=== PATIENT | male | born 1950 | race African-American/Black ===

== ENCOUNTER 2018-12-07 07:05 | Observation (INO) ==
--- NOTE | 2018-12-01 08:46 | EKG Report ---
Test Performed on : 12/01/2018 08:19:33 AM Test Reason : PAT Blood Pressure : / mmHG Vent. Rate : 087 BPM Atrial Rate : 087 BPM P-R Int : 154 ms QRS Dur : 100 ms QT Int : 386 ms P-R-T Axes : 051 -22 022 degrees QTc Int : 464 ms Normal sinus rhythm. Possible Left atrial enlargement Left ventricular hypertrophy Nonspecific ST abnormality Abnormal ECG When compared with ECG of 18-DEC-2015 11:08, Minimal criteria for Septal infarct are no longer present Nonspecific T wave abnormality has replaced inverted T waves in Inferior leads Unconfirmed Result
[2018-12-01 09:05] LABS: BASO# 0.07 X1000 (0.0-0.2); BASO% 1.2 % (0.0-0.8); EOS# 0.23 X1000 (0.0-0.7); EOS% 3.8 % (0.0-10.0); HEMATOCRIT 40.4 % (42.0-52.0); HEMOGLOBIN 12.9 g/dL (14.0-18.0); LYMPH# 1.71 X1000 (1.2-3.4); LYMPH% 28.1 % (20.5-51.1); MCH 27.7 PG (27-31); MCHC 31.9 g/dL (33-37); MCV 86.9 FL (81-99); MONO# 0.47 X1000 (0.11-0.59); MONO% 7.7 % (1.7-9.3); MPV 10.1 FL (7.4-10.4); NEUT% 59.2 % (42.2-75.2); PLT 287 X1000 (130-400); RBC 4.65 XMIL (4.7-6.1); RDW 14.4 % (11.5-14.5); WBC 6.08 X1000 (4.8-10.8)
[2018-12-01 09:10] LABS: INR 0.96; PROTIME 13.5 Seconds (11.0-16.0)
[2018-12-01 09:22] LABS: AGAP 13; BUN 16 mg/dL (8-22); CHLORIDE 102 mmol/L (98-107); COSMO 288; CREATININE 0.8 mg/dL (0.7-1.2); ESTIMATED GFR > 60; GLUCOSE 139 mg/dL (70-104); POTASSIUM 2.8 mmol/L (3.5-5.1); SODIUM 143 mmol/L (136-145); TCO2 28 mmol/L (25-35)
[2018-12-01 10:53] LABS: URINE SOURCE CLEAN CATCH
[2018-12-01 11:06] LABS: BILIRUBIN URINE NEGATIVE (NEGATIVE); BLOOD URINE NEGATIVE (NEGATIVE); COLOR YELLOW; GLUCOSE URINE NEGATIVE (NEGATIVE); KETONE URINE NEGATIVE (NEGATIVE); LEUKOCYTES URINE NEGATIVE (NEGATIVE); NITRITE URINE NEGATIVE (NEGATIVE); PH URINE 6.5; PROTEIN URINE TRACE mg/dL (NEGATIVE); SP GRAVITY URINE 1.012; TURBIDITY URINE CLEAR (CLEAR); UROBILINOGEN URINE NORMAL (NORMAL)
[2018-12-01 11:08] LABS: UR EPITHELIAL CELLS <10 /HPF (<10); URINE BACTERIA NEGATIVE /HPF; URINE RBC <10 /HPF (<10); URINE WBC <10 /HPF (<10)
[2018-12-07] MEDS ORDERED: COLACE ONE (07:37)
[2018-12-07] MEDS ORDERED: REGLAN ONE (07:37)
[2018-12-07] MEDS ORDERED: LYRICA ONE (07:37)
[2018-12-07] MEDS ORDERED: PEPCID ONE (07:37)
[2018-12-07] MEDS ORDERED: KEFZOL 2 GM/D5W 2 GM/50 ML IVPB ONE (07:38)
[2018-12-07] MEDS ORDERED: LR 1,000 ML ONE (07:38)
[2018-12-07] MEDS ORDERED: CELEBREX ONE (07:38)
[2018-12-07] MEDS ORDERED: DURAMORPH ONE (08:24)
[2018-12-07] MEDS ORDERED: TORADOL ONE (08:24)
[2018-12-07] MEDS ORDERED: VANCOMYCIN ONE (08:24)
[2018-12-07] MEDS ORDERED: SODIUM CHLORIDE 0.9% ONE (08:25)
[2018-12-07] MEDS ORDERED: SENSORCAINE-MPF 0.5%/EPI 1:200,000 ONE (08:25)
[2018-12-07] MEDS ORDERED: EXPAREL 1.3% ONE (08:26)
[2018-12-07] MEDS ORDERED: NEOSPORIN G.U. IRRIGANT ONE (08:27)
[2018-12-07] MEDS ORDERED: DIPRIVAN 1% 500 MG/50 ML BOTTLE ONE (08:44)
[2018-12-07] MEDS ORDERED: DECADRON ONE (08:47)
[2018-12-07] MEDS ORDERED: XYLOCAINE-MPF 2% ONE (08:47)
[2018-12-07] MEDS ORDERED: FENTANYL ONE (08:48)
[2018-12-07] MEDS ORDERED: OFIRMEV 1000 MG/ISOTONIC SOLN 1,000 MG/100 ML BOTTLE ONE (08:49)
[2018-12-07] MEDS ORDERED: VERSED ONE (08:49)
[2018-12-07] MEDS: CYKLOKAPRON 1,000 MG/NS 2,000 MG/200 ML IVPB ONE ×2 (09:20→10:15)
[2018-12-07] MEDS ORDERED: ZOFRAN ONE (09:21)
--- NOTE | 2018-12-07 10:45 | OPERATIVE NOTE ---
PROCEDURE DATE: 12/07/2018 PREOPERATIVE DIAGNOSIS: Degenerative joint disease (DJD), right knee. POSTOPERATIVE DIAGNOSIS: Degenerative joint disease (DJD), right knee. PROCEDURE PERFORMED: Right total knee replacement. SURGEON: Armani Mcgraw MD MARINE ENGINEER [employer]: RUY Beltran. Mr. Aguirre was necessary for proper retraction and manipulation of the knee during the surgery. ANESTHESIA: Spinal. COMPLICATION: None. PROCEDURE IN DETAIL: A 68-year-old male presents for surgical right knee replacement. Risks, benefits, and no guarantees were discussed, and he was willing to proceed. He was taken the operating room and satisfactory anesthesia obtained. The right leg was prepped and draped in usual sterile fashion. A time-out was taken to confirm operative site, procedure, and patient. The leg was wrapped with an Esmarch after prep and drape and tourniquet inflated to 300 mmHg. A midline incision was made over the front of the knee, followed by a quadriceps tendon-sparing arthrotomy. The patella was everted and resurfaced with freehand technique and subluxed laterally. With the knee flexed, an intramedullary hole was made in the distal femur and the distal femoral cutting block secured in 5 degrees of valgus. Distal femoral resection was made and the femur sized to a [facility] size 7 femoral component. The 4-in-1 block was secured and the anterior, posterior, and chamfer cuts sequentially made. Any remaining osteophytes were debrided about the femur. The PCL was retained and the knee flexed and a PCL retractor placed behind the tibia to protect the PCL. The tibial cutting block was secured with extramedullary alignment and the tibial resection made with care taken to preserve the collateral ligaments and avoid any injury to the posterior neurovascular bundle and PCL. Flexion and extension gaps were equal with a 5 mm spacer. The tibia was sized to a size 7 tibial tray. Trial reduction was performed with good range of motion and stability. The patella was sized to a 38 medialized dome patella with medial and midline tracking of the patellofemoral component. The lug holes were placed for the patellar component and femur and all bony surfaces thoroughly irrigated after removal of the trial prosthesis. Cement with 1 g of vancomycin was then utilized to cement a rotating platform, Attune size 7 tibial tray, size 7 right cruciate-retaining femoral component, and a 38 medialized dome patella. Excess cement was removed with a [place] elevator. While the cement cured, the joint capsule was injected with Exparel and a Hemovac drain placed. Afterwards, a 5 mm thick, size 7 rotating platform poly was secured in the tibial tray and the knee reduced. Final range of motion was 0 to 120 degrees with midline patellar tracking. The arthrotomy was copiously irrigated with irrigant and closed with #1 Vicryl in the arthrotomy over the drain, 2- 0 Vicryl in the subcutaneous, and skin von on the skin edges. Sterile dressings completed the closure and the patient was recovered from anesthesia and transferred to the recovery room in stable condition. No intraoperative complications were noted. Instrument count and sponge count were correct at the time of closure. cc: Brett Mcgraw MD
[2018-12-07 11:07] LABS: URINE SOURCE CATH
[2018-12-07 11:20] LABS: BILIRUBIN URINE NEGATIVE (NEGATIVE); BLOOD URINE NEGATIVE (NEGATIVE); COLOR STRAW; GLUCOSE URINE NEGATIVE (NEGATIVE); KETONE URINE NEGATIVE (NEGATIVE); LEUKOCYTES URINE NEGATIVE (NEGATIVE); NITRITE URINE NEGATIVE (NEGATIVE); PH URINE 7.5; PROTEIN URINE NEGATIVE (NEGATIVE); SP GRAVITY URINE 1.002; TURBIDITY URINE CLEAR (CLEAR); UROBILINOGEN URINE NORMAL (NORMAL)
[2018-12-07 11:22] LABS: UR EPITHELIAL CELLS <10 /HPF (<10); URINE BACTERIA NEGATIVE /HPF; URINE RBC <10 /HPF (<10); URINE WBC <10 /HPF (<10)
[2018-12-07] MEDS ORDERED: NS 1,000 ML ONE (11:41)
--- NOTE | 2018-12-07 11:58 | Diag Imaging Result Doc PS360 ---
EXAM: KNEE 1-2 VIEWS-RIGHT INDICATION: post op TECHNIQUE: 2 views COMPARISON: None. FINDINGS: There has been a recent right knee arthroplasty. The arthroplasty hardware is in the expected position. There is no evidence of periprosthetic fracture. Anterior skin von and a drainage catheter are in place. IMPRESSION: Satisfactory postoperative knee. Electronically signed by Brett Clarke 12/07/2018 11:56 AM
[2018-12-07] MEDS ORDERED: NS 1,000 ML IV SCH (13:45)
[2018-12-07] MEDS ORDERED: OXY IR PO PRN ×2 (13:45)
[2018-12-07] MEDS ORDERED: MORPHINE IV PRN ×3 (13:45)
[2018-12-07] MEDS ORDERED: ZOFRAN ODT PO PRN (13:45)
[2018-12-07] MEDS ORDERED: ZOFRAN IV PRN (13:45)
--- NOTE | 2018-12-07 14:53 | PROGRESS NOTE ---
DATE: 12/07/2018 SUBJECTIVE DATA: Mr. Davis is on postop day 0 of a right total knee arthroplasty. He reports he is doing well at this time. He reports he has already been up walking with physical therapy. He reports his pain is a 1/10 at this time. OBJECTIVE DATA: There is good sensation to the right lower extremity. Bandages are clean and dry. The drain is intact. There is good capillary refill. There is negative Homans sign. The patient is able to flex his quadriceps muscles without difficulty. There is also good sensation of the right lower extremity. ASSESSMENT: Degenerative joint disease of the right knee with right total knee arthroplasty. PLAN: We plan on sending Mr. Davis home tomorrow if all goes well during the night. We will check back on him in the morning. Dictated by RUY Beltran for Brett Mcgraw MD cc: RUY Beltran MD
[2018-12-07] MEDS: ULTRAM PO SCH ×2 (15:04→21:23)
[2018-12-07] MEDS: KLOR-CON PO SCH (15:05)
[2018-12-07] MEDS: TYLENOL PO SCH ×2 (16:11→21:23)
[2018-12-07] MEDS: KEFZOL 2 GM/D5W 2 GM/50 ML IVPB IV SCH (17:41)
[2018-12-07] MEDS: CELEBREX PO SCH (21:23)
[2018-12-07] MEDS: COLACE PO SCH (21:23)
[2018-12-08] MEDS: KEFZOL 2 GM/D5W 2 GM/50 ML IVPB IV SCH (01:24)
[2018-12-08] MEDS: ULTRAM PO SCH ×2 (03:22→09:18)
[2018-12-08] MEDS: TYLENOL PO SCH ×2 (03:22→09:18)
[2018-12-08 05:52] LABS: HEMATOCRIT 31.3 % (42.0-52.0); HEMOGLOBIN 10.1 g/dL (14.0-18.0)
[2018-12-08 06:19] LABS: AGAP 10; BUN 15 mg/dL (8-22); CALCIUM 8.4 mg/dL (8.8-10.2); CHLORIDE 104 mmol/L (98-107); COSMO 281; CREATININE 0.7 mg/dL (0.7-1.2); ESTIMATED GFR > 60; GLUCOSE 120 mg/dL (70-104); POTASSIUM 3.2 mmol/L (3.5-5.1); SODIUM 140 mmol/L (136-145); TCO2 26 mmol/L (25-35)
[2018-12-08 07:28] VITALS: BP 182/94
--- NOTE | 2018-12-08 07:34 | PROGRESS NOTE ---
DATE: 12/08/2018 Mr. Davis is seen status post total knee replacement. At the present time, he is doing relatively well. He is afebrile with stable vital signs. His bandage is clean and dry. He is motor and sensory intact with no signs of DVT or infection. He can be mobilized today and we will remove all drains and lines. He can be discharged home today for home therapy. I will follow up with him in roughly 12 days. He is to continue his regular home medicines. We have placed him on additional pain medicine and antibiotics as needed. We will see him back in 12 days or sooner for any worsening signs or symptoms. cc: Brett Mcgraw MD
[2018-12-08] MEDS ORDERED: PLAVIX PO SCH (09:00)
[2018-12-08] MEDS ORDERED: PERIDEX MT SCH (09:00)
[2018-12-08] MEDS ORDERED: ADALAT CC PO SCH (09:00)
[2018-12-08] MEDS ORDERED: COZAAR PO SCH (09:00)
[2018-12-08] MEDS ORDERED: CENTRUM SILVER PO SCH (09:00)
[2018-12-08] MEDS ORDERED: PRILOSEC PO SCH (09:00)
[2018-12-08] MEDS ORDERED: EFFEXOR XR PO SCH (09:00)
[2018-12-08] MEDS ORDERED: PEPCID PO SCH (09:00)
[2018-12-08] MEDS ORDERED: DEPAKOTE ER PO SCH (09:00)
[2018-12-08] MEDS ORDERED: ASPIRIN PO SCH (09:00)
[2018-12-08] MEDS: KLOR-CON PO SCH (09:18)
[2018-12-08] MEDS: CELEBREX PO SCH (09:18)
[2018-12-08] MEDS: COLACE PO SCH (09:18)
== END 2018-12-08 12:27 | disposition home health service (06) ==
LOC: OR 07:05 → 4N 07:05
PROVIDERS: ADMIT Orthopaedic Surgery Adult Reconstructive Orthopaedic Surgery; ATTEND Orthopaedic Surgery Adult Reconstructive Orthopaedic Surgery
CPT/HCPCS: 73560; 80048; 81001; 84132; 85014; 85018; 85025; 85610; 85730; 86850; 86900; 86901; 88305; 88311; 93005; 93010; 94761; 94799; 97116; 97162; A9270; C9290; J0131; J0690; J1100; J1885; J2250; J2274; J2275; J2405; J3010; J3370; J7030; J7120; Q9974